=== PATIENT | male | born 1945 | race Caucasian/White ===

== ENCOUNTER 2025-04-25 13:15 | Day surgery (SDC) | payer MEDICARE, BC, SELFPAY ==
[2025-04-25] VITALS (11 sets, daily range): BP systolic 152–191; BP diastolic 81–127; PULSE 67–87; RESP 16–18; TEMP 36.9–37.1; O2SAT 96–100; BMI 25.8
[2025-04-25] MEDS: SODIUM CHLORIDE 0.9% 500 ML 500 ML 20 ML IV (15:08)
[2025-04-25] MEDS: MIDAZOLAM INJ 1 MG/ML VIAL 2 ML (ASD USE ONLY) 2 MG IVP (15:11)
[2025-04-25] MEDS: fentaNYL CIT INJ 50 mCg/ML AMP 2ML (ASD USE ONLY) IVP (15:11)
== END 2025-04-25 16:10 | disposition home or self-care (01) ==
PROVIDERS: PCP Internal Medicine; Referring Provider Specialist; Visit Provider Specialist
PROC: 0DBE8ZX Excision of Large Intestine, Via Natural or Artificial Opening Endoscopic, Diagnostic (ICD-10-PCS; CPT 45380; principal; 2025-04-25 14:15)
DX: Z12.11 Encounter for screening for malignant neoplasm of colon (principal); D12.8 Benign neoplasm of rectum; K64.1 Second degree hemorrhoids; K57.30 Diverticulosis of large intestine without perforation or abscess without bleeding
CPT/HCPCS: 45385; A4217; A4649; J1200; J2250; J3010; J7999